=== PATIENT | male | born 1990 | race African-American/Black ===

== ENCOUNTER 2023-05-01 16:20 | Inpatient (IN) | payer OTHER ==
[~2023-05-01] VITALS: Ht 180.3 cm; Wt 79.8 kg
--- NOTE | 2023-05-01 17:00 | NUR ---
32 year old male received to room 321 ,pt is axox4.brp call light with in reach vs are stable md notified for the admission
[2023-05-01 17:46] VITALS: BP 129/74; TEMP 97.8; O2SAT 97
[2023-05-01] MEDS ORDERED: ZOLPIDEM 5 MG TABLET PO PRN (18:15)
[2023-05-01] MEDS ORDERED: MAGNESIUM HYDROXIDE 30 ML LIQUID UDC PO PRN (18:15)
[2023-05-01] MEDS ORDERED: ACETAMINOPHEN ES 500 MG TABLET PO PRN (18:15)
[2023-05-01] MEDS ORDERED: IBUPROFEN 600 MG TABLET PO PRN (18:15)
[2023-05-01] MEDS ORDERED: MAG HYDROX/AL HYDROX/SIMETH 30 ML LIQUID UDC PO PRN (18:15)
[2023-05-01] MEDS ORDERED: LORAZEPAM 1 MG TABLET PO PRN (18:15)
--- NOTE | 2023-05-01 20:29 | NUR ---
pt is sleeping in the room ,call light with in reach
[2023-05-01 21:57] VITALS: BP 115/77; TEMP 97.5; O2SAT 97
--- NOTE | 2023-05-01 22:50 | NUR ---
pt is sleeping comfortably no termers or agitation noted
--- NOTE | 2023-05-02 04:22 | NUR ---
NSG; Remain calm and cooperative. no c/o pain or discomfort at this time. v/s wnl. resting in bed comfortably. call light w/in reach.
[2023-05-02] MEDS ORDERED: IBUPROFEN 200 MG TABLET PO PRN (05:30)
[2023-05-02 06:35] VITALS: BP 150/89; TEMP 97.6; O2SAT 96
--- NOTE | 2023-05-02 09:45 | NUR ---
WRONG YEAR OF : Notified Andrzej on research team that pt's year of is 1979 not 1989 like it says on pt's wrist band. Confirmed date multiple times with pt. Research team aware.
--- NOTE | 2023-05-02 09:45 | NUR ---
Spoke with Andrzej, cell [phone], from Research to coordinate care. Pt allowed to go on smoke breaks as desired with research escort. Pt also allowed to leave the floor to go to the second floor to play x-box or watch Netflix as desired with escort. Will notify Andrzej by cell phone of any pt needs.
[2023-05-02 12:00] VITALS: BP 122/74; TEMP 97.8; O2SAT 99
[2023-05-02 16:18] VITALS: BP 112/73; TEMP 97.7; O2SAT 99
--- NOTE | 2023-05-02 18:19 | NUR ---
Research team, Irene and 1 other, took pt downstairs for a smoking break. Pt stable. Ambulating with steady gait.
--- NOTE | 2023-05-02 19:05 | NUR ---
Pt returned from his smoke break with a member of the research team. Pt ambulating with steady gait. No s/s of distress noted. Will endorse to night nurse.
[2023-05-02 20:30] VITALS: BP 120/72; TEMP 97.2; O2SAT 99
[2023-05-03 04:20] VITALS: BP 112/74; TEMP 97.7; O2SAT 99
--- NOTE | 2023-05-03 07:00 | NUR ---
Received patient aox4, patient sleeping at this time . No signs of acute distress noted.call light with in reach
--- NOTE | 2023-05-03 10:30 | NUR ---
pt seen by dr garcia
[2023-05-03 11:46] VITALS: BP 122/67; TEMP 98.4; O2SAT 100
--- NOTE | 2023-05-03 14:59 | NUR ---
Research team, Irene and 1 other, took pt downstairs for a smoking break. Pt stable. Ambulating with steady gait.
--- NOTE | 2023-05-03 15:42 | NUR ---
Pt returned from his smoke break with a member of the research team. Pt ambulating with steady gait. No s/s of distress noted.
[2023-05-03 16:20] VITALS: BP 118/80; TEMP 98.7; O2SAT 100
--- NOTE | 2023-05-03 17:21 | NUR ---
Remain calm and cooperative. no c/o pain or discomfort at this time.. resting in bed comfortably. call light w/in reach.
[2023-05-03 19:46] VITALS: BP 129/65; TEMP 98.4; O2SAT 99
[2023-05-03 20:16] VITALS: BP 129/65; TEMP 98.4; O2SAT 99
[2023-05-04 04:43] VITALS: BP 124/75; TEMP 98.4; O2SAT 99
--- NOTE | 2023-05-04 07:10 | NUR ---
received in bed sleeping comfortably no termers or agitation noted call light with in reach we will continue to monitors
--- NOTE | 2023-05-04 09:10 | NUR ---
Research team, Irene and 1 other, took pt downstairs for a smoking break. Pt stable. Ambulating with steady gait.
--- NOTE | 2023-05-04 09:36 | NUR ---
Pt returned from his smoke break with a member of the research team. Pt ambulating with steady gait.
[2023-05-04 11:40] VITALS: BP 127/67; TEMP 98.4; O2SAT 100
--- NOTE | 2023-05-04 14:00 | NUR ---
pt is resting in his room denies any hallucinating
[2023-05-04 15:54] VITALS: BP 115/64; TEMP 98; O2SAT 99
[2023-05-04 20:29] VITALS: BP 118/66; TEMP 98.5; O2SAT 100
--- NOTE | 2023-05-04 20:30 | NUR ---
pt took shower ,and pt said he is feeling fresh
--- NOTE | 2023-05-05 00:55 | NUR ---
pt is awake in the room talking on the phone
--- NOTE | 2023-05-05 04:51 | NUR ---
Patient slept well throughout the night, no acute distress noted. Needs assessed and attended call light with in reach
[2023-05-05 15:50] VITALS: BP 108/71; TEMP 97.5; O2SAT 98
[2023-05-05 20:00] VITALS: BP 131/88; TEMP 98.4
--- NOTE | 2023-05-05 20:00 | NUR ---
Received patient laying in bed Alert and Oriented X4. In no acute distress. Call light within reach, will continue to monitor and continue plan of care.
--- NOTE | 2023-05-06 11:15 | NUR ---
patient is alert, oriented x4, no sob, respirations are even nonlabored, skin warm and dry to touch, no distress noted, patient stated he took shower, and tolerated his meals well. patient stated she still hears voices. denies any suicidal thoughts.
[2023-05-06 11:52] VITALS: BP 122/74; TEMP 97.5; O2SAT 99
[2023-05-06 16:04] VITALS: BP 118/83; TEMP 98; O2SAT 99
[2023-05-06 22:42] VITALS: BP 110/62; TEMP 98.2; O2SAT 100
--- NOTE | 2023-05-07 05:36 | NUR ---
Pt received ambulatory around his room pleasant AOX3 denies any discomfort at this time. pt offered some snack tolerates PO well no PRN requested during PM shift. Observed pt smiling and able to verbalize his needs. No event observed during PM shift. Endorse care to incoming nurse
[2023-05-07] MEDS: OLANZAPINE 5 MG TABLET PO SCH ×2 (09:05→16:26)
[2023-05-07 11:08] VITALS: BP 114/68; TEMP 98.4; O2SAT 99
[2023-05-07 15:20] VITALS: BP 112/68; TEMP 98.4; O2SAT 97
--- NOTE | 2023-05-07 16:45 | NUR ---
Pt cooperative with taking his pills. Pt denies any c/o pain. No anxiety noted.
--- NOTE | 2023-05-07 18:35 | NUR ---
NO EPS NOTED THROUGHOUT SHIFT.
[2023-05-07 20:00] VITALS: BP 101/54; TEMP 98.6; O2SAT 96
[2023-05-08 04:00] VITALS: BP 114/65; TEMP 97.9; O2SAT 98
--- NOTE | 2023-05-08 06:16 | NUR ---
Pt received comfortable in his room no PRN medication was requested, snack was provided and tolerates well intake, no disrupted behavior observed during PM shift no visitor to update plan of care, continue monitoring safety, Endorse care to incoming nurse
[2023-05-08] MEDS: OLANZAPINE 5 MG TABLET PO SCH ×2 (09:20→16:42)
[2023-05-08 11:59] VITALS: BP 109/62; TEMP 97.6; O2SAT 98
[2023-05-08 16:08] VITALS: BP 118/55; TEMP 97.6; O2SAT 98
--- NOTE | 2023-05-08 18:42 | NUR ---
NO EPS noted throughout shift. Pt able to make his needs known. Pt is in no acute distress. Call light is within reach.
[2023-05-08 20:00] VITALS: BP 118/64; TEMP 98.6; O2SAT 98
[2023-05-09 04:00] VITALS: BP 110/62; TEMP 98.7; O2SAT 99
--- NOTE | 2023-05-09 06:34 | NUR ---
Slept throughout the night. No PRN medications given. All needs attended to and met.
[2023-05-09 11:54] VITALS: BP 120/58; TEMP 97.9; O2SAT 100
[2023-05-09 15:50] VITALS: BP 113/56; TEMP 97.5; O2SAT 99
--- NOTE | 2023-05-09 17:38 | NUR ---
No tremors noted throughout shift.
[2023-05-09 19:53] VITALS: BP 105/76; TEMP 97.3
[2023-05-10 06:13] VITALS: BP 112/71; TEMP 97.9
--- NOTE | 2023-05-10 08:00 | NUR ---
Patient was out on pass with research team. Not seen yet
[2023-05-10] MEDS ORDERED: LORAZEPAM 1 MG TABLET PO PRN (15:00)
[2023-05-10] MEDS ORDERED: ZOLPIDEM 5 MG TABLET PO PRN (15:00)
--- NOTE | 2023-05-10 17:12 | NUR ---
Patient came back from out on pass, brought by research team. Ambulatory, awake, alert and oriented Vital signs taken and recorded Observed accordingly, needs attended
[2023-05-10 17:24] VITALS: BP 144/99; TEMP 97.6; O2SAT 100
--- NOTE | 2023-05-10 19:30 | NUR ---
Received patient in his room. AAOx4. In no acute distress. Denies any pain or SOB. Needs assessed and attended to. Safety measure initiated and call light within reached.
[2023-05-10 21:12] VITALS: BP 118/83; TEMP 98.2; O2SAT 98
[2023-05-11 04:34] VITALS: BP 131/82; TEMP 97.8; O2SAT 97
--- NOTE | 2023-05-11 05:32 | NUR ---
No complain of pain or SOB. Needs attended to and met. Safety measure maintained and call light within reached.
--- NOTE | 2023-05-11 07:00 | NUR ---
Received patient awake in bed. In no acute distress, Alert and Oriented X4. Fully ambulatory. Will continue to monitor and will continue plan of care.
--- NOTE | 2023-05-11 10:23 | NUR ---
Research team, Irene and 1 other, took pt downstairs for a smoking break. Pt stable. Ambulating with steady gait.
--- NOTE | 2023-05-11 11:00 | NUR ---
Patient was out on pass with research team. Not seen yet
--- NOTE | 2023-05-11 14:49 | NUR ---
Patient came back from out on pass, brought by research team. Ambulatory, awake, alert and oriented Vital signs taken and recorded Observed accordingly, needs attended
--- NOTE | 2023-05-11 15:30 | NUR ---
pt smoke vape in the room code red activate .explain to the pt he can not smoke and vape in the room ,pt said ok and pt said he feels anxious after the appointment ,didi hernandez came and also explain to the pt .pt apologies and said he wont do it again
--- NOTE | 2023-05-11 18:00 | NUR ---
pt is resting in his room all the needs met
--- NOTE | 2023-05-11 19:30 | NUR ---
Received patient lying in bed. AAOx4. In no apparent distress. Denies any pain or SOB. Needs assessed and attended to. Safety measure initiated and call light within reached.
[2023-05-11 20:11] VITALS: BP 125/71; TEMP 98; O2SAT 98
[2023-05-12 04:25] VITALS: BP 140/70; TEMP 98.1; O2SAT 99
--- NOTE | 2023-05-12 06:55 | NUR ---
Received patient laying in bed Alert and Oriented X4. In no acute distress. Call light within reach, will continue to monitor and continue plan of care.
[2023-05-12 12:00] VITALS: BP 121/64; TEMP 97.9; O2SAT 99
--- NOTE | 2023-05-12 13:00 | NUR ---
Research team, Irene and 1 other, took pt downstairs for a smoking break. Pt stable. Ambulating with steady gait.
[2023-05-12 16:00] VITALS: BP 125/63; TEMP 98.4; O2SAT 98
[2023-05-12 20:11] VITALS: BP 126/65; TEMP 98.6; O2SAT 97
[2023-05-13 04:55] VITALS: BP 119/63; TEMP 98.5; O2SAT 99
--- NOTE | 2023-05-13 05:27 | NUR ---
Pt received in room 321 comfortable research assistance staff came to take pt out to the patio, pt refused. Provided some snack pt slept most of the night no PRN requested, still monitoring safety and any discomfort Endorse care to incoming nurse.
[2023-05-13 12:00] VITALS: BP 128/85; TEMP 97.7; O2SAT 100
--- NOTE | 2023-05-13 13:59 | NUR ---
Research team, Irene , took pt downstairs for a smoking break. Pt stable. Ambulating with steady gait.
[2023-05-13 18:00] VITALS: BP 105/66; TEMP 98.5; O2SAT 95
[2023-05-13 20:26] VITALS: BP 126/78; TEMP 98.6; O2SAT 97
[2023-05-14 04:55] VITALS: BP 128/67; TEMP 98.4; O2SAT 98
--- NOTE | 2023-05-14 06:17 | NUR ---
Pt received in bed comfortable denies any pain and offered snack. Pt tolerates well PO. pt slept well through the night without any complain and no PRN was given, continue monitoring safety Endorse care to incoming nurse
--- NOTE | 2023-05-14 07:00 | NUR ---
Received patient aox4, patient sleeping at this time . No signs of acute distress noted.call light with in reach
[2023-05-14 11:17] VITALS: BP 114/75; TEMP 97.9; O2SAT 99
[2023-05-14 16:32] VITALS: BP 127/77; TEMP 98.6; O2SAT 97
[2023-05-14 23:16] VITALS: BP 106/58; TEMP 98.2
--- NOTE | 2023-05-15 05:14 | NUR ---
Pt received coming back to the floor from his last out of unit break. Pt return in electronic maintenance supervisor of the research staff assistance. Pt requested snack, after Pt slept comfortable through the night No PRN requested. Continue monitoring safety and comfort, endorse care to incoming nurse
[2023-05-15 11:38] VITALS: BP 122/78; TEMP 98.1; O2SAT 96
--- NOTE | 2023-05-15 16:17 | NUR ---
pt is resting in his room all the needs met
[2023-05-15 16:48] VITALS: BP 116/67; TEMP 98.6; O2SAT 99
[2023-05-15 20:13] VITALS: BP 120/85; TEMP 98.5; O2SAT 99
--- NOTE | 2023-05-16 01:43 | NUR ---
sleeping at this time in his room
[2023-05-16 11:34] VITALS: BP 120/83; TEMP 97.3; O2SAT 98
[2023-05-16 16:34] VITALS: BP 120/86; TEMP 98.6; O2SAT 99
--- NOTE | 2023-05-16 17:30 | NUR ---
Pt c/o gastric reflux. Went to remove Maalox from [facility], pt noted to be discharged from [facility], but was able to remove pt med. Notified pharmacy that the [facility] has pt listed as discharged. Pharmacy will follow up with IT.
[2023-05-16 20:00] VITALS: BP 125/78; TEMP 99.1; O2SAT 98
[2023-05-17 04:00] VITALS: BP 119/70; TEMP 98.4; O2SAT 98
--- NOTE | 2023-05-17 05:55 | NUR ---
AAOx4 All needs attended. VSS. Patient here for research. Admitting diagnosis is schizophrenia. No acute distress noted. Will monitor patient.
[2023-05-17 12:00] VITALS: BP 140/87; TEMP 98.5; O2SAT 100
--- NOTE | 2023-05-17 12:00 | NUR ---
Received patient came back from his unit break. Pt return in hospital clerk of the research staff assistance. Vital signs taken and recorded Monitored for any untoward signs and symptoms Needs attended, Observed
[2023-05-17] MEDS ORDERED: LORAZEPAM 1 MG TABLET PO PRN (15:00)
[2023-05-17 16:00] VITALS: BP 102/48; TEMP 98; O2SAT 98
[2023-05-17 20:17] VITALS: BP 117/84; TEMP 98.8; O2SAT 96
--- NOTE | 2023-05-18 07:00 | NUR ---
Received patient aox4, patient sleeping at this time . No signs of acute distress noted.call light with in reach
[2023-05-18 12:03] VITALS: BP 108/62; TEMP 98.8; O2SAT 97
[2023-05-18 16:00] VITALS: BP 124/74; TEMP 98.1; O2SAT 98
--- NOTE | 2023-05-18 19:30 | NUR ---
Received patient laying in bed Alert and Oriented X4. In no acute distress. Call light within reach, will continue to monitor and continue plan of care.
[2023-05-18 20:00] VITALS: BP 114/66; TEMP 98; O2SAT 97
[2023-05-19 04:00] VITALS: BP 111/64; TEMP 97.3; O2SAT 96
[2023-05-19 11:45] VITALS: BP 106/62; TEMP 98; O2SAT 97
[2023-05-19 15:50] VITALS: BP 101/60; TEMP 98.4; O2SAT 96
[2023-05-19 20:00] VITALS: BP 126/78; TEMP 99; O2SAT 98
[2023-05-20 04:00] VITALS: BP 132/81; TEMP 98.8; O2SAT 98
[2023-05-20 11:58] VITALS: BP 135/80; TEMP 98.5; O2SAT 98
[2023-05-20 15:50] VITALS: BP 129/76; TEMP 97.9; O2SAT 98
[2023-05-20 20:00] VITALS: BP 135/88; TEMP 98.7
[2023-05-21 04:00] VITALS: BP 130/63; TEMP 98.5; O2SAT 98
--- NOTE | 2023-05-21 06:55 | NUR ---
PATIENT ASLEEP IN BED. SLEPT WELL THROUGHOUT THE NIGHT. ALL NEEDS ATTENDED. WILL CONTINUE TO MONITOR AND ASSESS.
[2023-05-21 11:09] VITALS: BP 121/71; TEMP 98.4; O2SAT 97
[2023-05-21 16:20] VITALS: BP 135/79; TEMP 98.1; O2SAT 95
--- NOTE | 2023-05-21 16:49 | NUR ---
Patient awake in bed. He is comfortable. Normal air movement with apparent distress. He is calm and relax with no s/s of tremors at time. He is alert and oriented x4, verbal, able to make his needs known. Respiration even unlabored. Patient is ambulatory. No new changes reported. Will continue to monitor.
[2023-05-21 21:00] VITALS: BP 133/81; TEMP 98.7; O2SAT 97
--- NOTE | 2023-05-21 22:54 | NUR ---
Pt received in his room denies any discomfort, pleasant offered same snack tolerates well. Continue monitoring the present of any hallucinations. Endorse care to incoming nurse
[2023-05-22 04:00] VITALS: BP 128/68; TEMP 98.2; O2SAT 98
[2023-05-22 06:09] VITALS: BP 126/58; TEMP 98.2; O2SAT 98
[2023-05-22 11:05] VITALS: BP 114/79; TEMP 98.3; O2SAT 97
[2023-05-22 16:55] VITALS: BP 115/71; TEMP 98.5; O2SAT 98
[2023-05-22 20:00] VITALS: BP 123/74; TEMP 97.4; O2SAT 100
--- NOTE | 2023-05-22 20:00 | NUR ---
v/s done and WNL patient aaox4 maex4.BRP VOIDS .no respiratory distress noted no pain verbalized.
[2023-05-22] MEDS: ZOLPIDEM 5 MG TABLET PO PRN (21:25)
[2023-05-23 04:00] VITALS: BP_SYST 112; BP_SYST 130; BP_DIAS 60; BP_DIAS 80; TEMP 97.7; TEMP 98.2; O2SAT 100
--- NOTE | 2023-05-23 06:59 | NUR ---
patient requested cranberry juice provided at bedside .
[2023-05-23 08:00] VITALS: BP 111/69; TEMP 98.1; O2SAT 100
--- NOTE | 2023-05-23 08:27 | NUR ---
Received patient asleep in bed. No signs of distress. Awake, alert and oriented. Vital signs taken and recorded. Attended
[2023-05-23 11:07] VITALS: BP 126/72; TEMP 98.2; O2SAT 95
[2023-05-23] MEDS: ZOLPIDEM 5 MG TABLET PO PRN (20:08)
[2023-05-23 21:32] VITALS: BP 134/53; TEMP 98.2; O2SAT 95
--- NOTE | 2023-05-24 02:46 | NUR ---
Error with time of assessment. Assessment performed at 1915, not 0715. Addendum: 05/24/23 at 0248 by REGISTRY [facility] INPATIENT RN14 RN Amended: Links added.
[2023-05-24 04:23] VITALS: BP 119/65; TEMP 98; O2SAT 98
--- NOTE | 2023-05-24 07:30 | NUR ---
Patient went out on pass with research team. to [place]
--- NOTE | 2023-05-24 12:29 | NUR ---
patient came back from his visit ,pt is axox4 eating his lunch
[2023-05-24 13:06] VITALS: BP 136/93; TEMP 98.4; O2SAT 96
[2023-05-24 15:16] VITALS: BP 130/89; TEMP 98.2; O2SAT 96
[2023-05-24 20:00] VITALS: BP 127/88; TEMP 98.3; O2SAT 98
[2023-05-25] MEDS: ZOLPIDEM 5 MG TABLET PO PRN ×2 (00:19→22:31)
[2023-05-25 05:20] VITALS: BP 115/63; TEMP 98.3; O2SAT 100
--- NOTE | 2023-05-25 06:40 | NUR ---
Patient slept well throughout the night. In stable condition the whole shift.
--- NOTE | 2023-05-25 07:05 | NUR ---
Received patient asleep in bed. No signs of distress. Awake, alert and oriented. call light with in reach
[2023-05-25 11:32] VITALS: BP 121/79; TEMP 97.6; O2SAT 98
[2023-05-25 16:27] VITALS: BP 125/74; TEMP 97.7; O2SAT 97
[2023-05-25 20:50] VITALS: BP 121/67; TEMP 98.3; O2SAT 97
[2023-05-25] MEDS ORDERED: ZOLPIDEM 5 MG TABLET ONE (22:25)
[2023-05-26 04:40] VITALS: BP 119/61; TEMP 98.2; O2SAT 97
--- NOTE | 2023-05-26 06:54 | NUR ---
Pt. remains asleep at this time. In no form of distress noted.
[2023-05-26 11:25] VITALS: BP 122/75; TEMP 97.9; O2SAT 98
[2023-05-26 16:00] VITALS: BP 119/74; TEMP 97.9; O2SAT 97
[2023-05-26 20:00] VITALS: BP 142/86; TEMP 98.4; O2SAT 98
[2023-05-26] MEDS: ZOLPIDEM 5 MG TABLET PO PRN (22:12)
--- NOTE | 2023-05-27 07:00 | NUR ---
Received patient asleep in bed. No signs of distress. Awake, alert and oriented. Vital signs taken and recorded. Attended
--- NOTE | 2023-05-27 08:30 | NUR ---
Research collection team lead took pt downstairs for a smoking break. Pt stable. Ambulating with steady gait.
[2023-05-27 12:00] VITALS: BP 110/75; TEMP 98.2; O2SAT 96
[2023-05-27 16:00] VITALS: BP 111/77; TEMP 98.2; O2SAT 98
--- NOTE | 2023-05-27 16:32 | NUR ---
Patient awake in bed. He is comfortable. He is calm and relax with no s/s of tremors at time. He is alert and oriented x4, verbal, able to make his needs known.. Patient is ambulatory. No new changes reported. Will continue to monitor.
--- NOTE | 2023-05-27 17:24 | NUR ---
pt is anxious and requesting Ativan pt said somebody in his family and today they are doing the
[2023-05-27] MEDS: LORAZEPAM 1 MG TABLET PO PRN (17:34)
[2023-05-27 20:47] VITALS: BP 130/96; TEMP 97.2; O2SAT 98
[2023-05-27] MEDS: ZOLPIDEM 5 MG TABLET PO PRN (21:55)
[2023-05-28 06:00] VITALS: BP 100/60; TEMP 98.1; O2SAT 98
--- NOTE | 2023-05-28 07:00 | NUR ---
Received patient asleep in bed. No signs of distress. Awake, alert and oriented. call light with in reach
[2023-05-28] MEDS: LORAZEPAM 1 MG TABLET PO PRN (10:13)
--- NOTE | 2023-05-28 10:15 | NUR ---
pt is anxious and requesting Ativan ,per Md orders Ativan 1mg Po given
[2023-05-28 11:41] VITALS: BP 118/80; TEMP 98; O2SAT 96
[2023-05-28 16:26] VITALS: BP 113/62; TEMP 97.8; O2SAT 96
[2023-05-28 20:03] VITALS: BP 118/82; TEMP 97.8; O2SAT 99
[2023-05-28] MEDS: ZOLPIDEM 5 MG TABLET PO PRN (21:07)
--- NOTE | 2023-05-29 05:36 | NUR ---
PATIENT ASLEEP IN BED. SLEPT WELL THROUGHOUT THE NIGHT. PATIENT WAS GIVEN AMBIEN 10MG PRN REQUESTED PER PATIENT. ALL NEEDS ATTENDED. WILL CONTINUE TO MONITOR AND ASSESS.
[2023-05-29 05:52] VITALS: BP 122/78; TEMP 97.6; O2SAT 98
[2023-05-29 16:54] VITALS: BP 114/80; TEMP 98.3; O2SAT 97
[2023-05-29 20:32] VITALS: BP 142/84; TEMP 98.3; O2SAT 99
[2023-05-29] MEDS: ZOLPIDEM 5 MG TABLET PO PRN (21:41)
[2023-05-30 13:10] VITALS: BP 116/82; TEMP 98.1; O2SAT 98
[2023-05-30] MEDS: LORAZEPAM 1 MG TABLET PO PRN (13:41)
--- NOTE | 2023-05-30 13:43 | NUR ---
pt is anxious and requesting Ativan ,per Md orders Ativan 1mg Po given
[2023-05-30 16:00] VITALS: BP 123/79; TEMP 98.1; O2SAT 98
[2023-05-30 20:15] VITALS: BP 123/80; TEMP 98.6; O2SAT 96
[2023-05-31 06:55] VITALS: BP 114/72; TEMP 98.4; O2SAT 98
--- NOTE | 2023-05-31 07:17 | NUR ---
Patient went out on pass with research team.
--- NOTE | 2023-05-31 12:29 | NUR ---
Patient came back. No acute signs of distress, no SOB. Monitored accordingly. Attended
[2023-05-31 15:13] VITALS: BP 132/83; TEMP 98.2; O2SAT 100
--- NOTE | 2023-05-31 19:45 | NUR ---
rounds made patient in room . aaox4, ambulatory denies any pain breathing even and unlabored . v/s done and verbalized its very hot in his room and outside temp is very warm .patient temp 99.0 orally . given ice packs and will rechecked temp .
[2023-05-31 20:00] VITALS: BP 129/86; TEMP 99; O2SAT 100
--- NOTE | 2023-05-31 20:50 | NUR ---
research personnel came and visited patient.
[2023-06-01 04:30] VITALS: BP 120/68; TEMP 98.6; O2SAT 96
--- NOTE | 2023-06-01 04:46 | NUR ---
patient called and requesting for applejuice , provided apple juices and ice water . patient denies any pain or any distress .
--- NOTE | 2023-06-01 06:37 | NUR ---
patient seen by Cesar research coordinator .
--- NOTE | 2023-06-01 07:00 | NUR ---
asleep on rounds, no distress noted
--- NOTE | 2023-06-01 10:00 | NUR ---
up and about in the room and hallway, no tremors noted, appetite good
[2023-06-01 15:53] VITALS: BP 116/61; TEMP 97.4; O2SAT 98
--- NOTE | 2023-06-01 18:03 | NUR ---
no distress noted, no tremors observed- voiding qs, all needs attended and meet, safety measures maintained
[2023-06-02 04:00] VITALS: BP 118/72; TEMP 98.2; O2SAT 100
--- NOTE | 2023-06-02 06:00 | NUR ---
awake ,brp ,no complains made .
[2023-06-02 20:00] VITALS: BP 130/87; TEMP 97.8; O2SAT 96
[2023-06-02] MEDS ORDERED: ZOLPIDEM 5 MG TABLET PO PRN (21:45)
[2023-06-02] MEDS ORDERED: ZOLPIDEM 5 MG TABLET ONE (22:10)
[2023-06-03 05:08] VITALS: BP 126/73; TEMP 98.5; O2SAT 99
--- NOTE | 2023-06-03 08:00 | NUR ---
RECEIVED PATIENT IN BED AWAKE ALERT AND ORIENTED DENIES PAIN OR DISCOMFORTS AT THIS TIME.CALL LIGHTS AND PERSOANL BELONGINGS ARE WITHIN EASY REACH NO C/O AT THIS TIME.
[2023-06-03 16:14] VITALS: BP 133/69; TEMP 98.2; O2SAT 98
--- NOTE | 2023-06-03 16:54 | NUR ---
AMBULATORY TO DESIRED DESTINATIONS DENIES DISCOMFORTS COOPERATIVE NOT IN DISTRESS AT THIS TIME.
[2023-06-03 20:15] VITALS: BP 122/77; TEMP 98.2; O2SAT 98
[2023-06-04 06:24] VITALS: BP 103/64; TEMP 98.7; O2SAT 98
[2023-06-04 11:35] VITALS: BP 117/75; TEMP 98.1; O2SAT 100
--- NOTE | 2023-06-04 14:45 | NUR ---
PATIENT APPROACHED ME AND STATED THAT HE WANTS ATIVAN TO RELAX CHECKED AND PATIENT HAS NO ORDER SO I CALLED DR DAVIS WHO IS DUMP WORKER FOR DR MYRICK SPOKE WITH HER AND SHE STATED THAT SHE IS NOT FAMILIAR WITH THE RESEARCH PATIENTS AND DID NOT WANT TO ORDER ATIVAN FOR HIM SUGGESTED TO CALL DR WHITE DNP KAREN CALLED KAREN AND LEFT HIM A MESSAGE.
--- NOTE | 2023-06-04 16:53 | NUR ---
NO RETURN CALL AT THIS TIME AND PATIENT IS AWARE AND HE STATED ITS OKAY FOR NOW WILL CONTINUE TO OBSERVE.
--- NOTE | 2023-06-04 19:30 | NUR ---
Received patient laying in bed Alert and Oriented X4. In no acute distress. Call light within reach, will continue to monitor and continue plan of care.
[2023-06-04 20:30] VITALS: BP 111/72; TEMP 98.2; O2SAT 97
--- NOTE | 2023-06-05 07:00 | NUR ---
SEEN PATIENT THIS AM AMBULATORY WITH THE RESEARCH TEAM AND STATED THAT THEY ARE GOING TO [place] FOR THEIR RESEARCH SESSIONS TODAY PATIENT IS IN GOOD SPIRIT.
[2023-06-05 11:51] VITALS: BP 115/88; TEMP 98.4; O2SAT 97
--- NOTE | 2023-06-05 12:30 | NUR ---
PATIENT RETURNED IN SATISFACTORY CONDITION DENIES DISCOMFORTS TOLERATED HI LUNCH NO DISTRESS NOTED.
[2023-06-05 16:16] VITALS: BP 127/83; TEMP 98.8; O2SAT 96
--- NOTE | 2023-06-05 18:00 | NUR ---
IN GOOD SPIRITS WITH NO C/O AT THIS TIME.
[2023-06-05 20:16] VITALS: BP 129/85; TEMP 97.6; O2SAT 96
[2023-06-06 06:18] VITALS: BP 109/76; TEMP 98.1; O2SAT 97
--- NOTE | 2023-06-06 06:30 | NUR ---
PATIENT SLEPT WELL. DENIES HEARING ANY VOICES. COOPERATIVE WITH STAFF. VSS. CALL LIGHT IN REACH. ALL NEEDS ATTENDED. WILL CONTINUE TO MONITOR AND ASSESS.
--- NOTE | 2023-06-06 09:00 | NUR ---
PATIENT SEEN AND EXAMINED BY DR WANDER JONES WITH NO NEW ORDERS AT THIS TIME.
[2023-06-06 11:34] VITALS: BP 109/68; TEMP 98; O2SAT 99
--- NOTE | 2023-06-06 15:44 | NUR ---
D/C PLANNING PATIENT STATED THAT HE WILL BE DISCHARGED TOMORROW PER HIS PROGRAM AND HE WILL GO TO [place] WHERE HE RESIDES.
[2023-06-06 16:00] VITALS: BP 122/72; TEMP 97.7; O2SAT 98
[2023-06-06 20:02] VITALS: BP 114/74; TEMP 97.1; O2SAT 96
--- NOTE | 2023-06-07 03:41 | NUR ---
AAOx4 All needs attended. VSS. No acute distress noted. No complaints presented during shift. Slept well throughout the night.
--- NOTE | 2023-06-07 06:35 | NUR ---
patient leaving against medical advice. Dr Gutierrez aware. AMA paper signed. Patient will be leaving in about 1/2 hour. Endorse to incoming shift.
== END 2023-06-07 06:50 | disposition left against medical advice (07) | DRG 951 ==
LOC: MEDSURG3 16:20
PROVIDERS: ADMIT Psychiatry & Neurology Psychiatry; ATTEND Psychiatry & Neurology Psychiatry
DX: Z00.6 Encounter for examination for normal comparison and control in clinical research program (principal); F20.9 Schizophrenia, unspecified
CPT/HCPCS: A4663; G0378